=== PATIENT | female | born 2000 | race Caucasian/White ===

== ENCOUNTER 2019-03-10 18:18 | Inpatient (IN) | payer OTHER ==
[~2019-03-10 18:18] MED LIST: Bupivacaine 0.25% HCL 30 ML VIAL ONE
[2019-03-10 19:12] VITALS: BMI 29.2
[2019-03-10] MEDS ORDERED: hydrALAZINE 20 MG/ML VIAL SLOW IVP PRN ×2 (19:32→21:14)
--- NOTE | 2019-03-10 20:47 | PDOC.LDHP ---
Labor and Delivery H&P Chief complaint: decreased movement, other HPI: isolated decel in office with nl bpp, also decreased movement. 39 wk by poor criteria Current gestational age (weeks): 39 Due date: 03/14/19 Dating criteria: last menstrual period, other Grav: 1 Para: 0 Current complications: none Abnormal US findings: No Current medications: none, pre- vitamins Previous surgical history: none Allergies/Adverse Reactions: Allergies Allergy/AdvReac Type Severity Reaction Status Date / Time No Known Allergies Allergy Unverified 03/10/19 19:05 Social history: none - Physical Exam Vital signs reviewed and normal: yes General: NAD, resting, breathing through contractions Heart: RRR Lungs: nonlabored breathing Abdomen: NTTP Extremeties: no edema FHT: category 1 - Vaginal Exam cm dilated: 2 Effacement: 90% Station: -2 - OB Labs Blood type: O RH: positive Antibody Screen: negative HIV: negative RPR: negative HEPSAg: negative 1 hour GCT: negative GBS: negative Urine drug screen: negative Rubella: non-immune - Assessment L&D Assessment: medically indicated induction - Plan Plan: admit to L&D, cervical ripening
[2019-03-10] MEDS ORDERED: Butorphanol Tartrate 1 MG/ML VIAL SLOW IVP PRN (21:14)
[2019-03-10] MEDS ORDERED: HYDROcodone/Acetaminophen 5/325 mg Tablet PO PRN ×2 (21:14)
[2019-03-10] MEDS ORDERED: Ondansetron PF 4 MG/2 ML Vial IVP PRN (21:14)
[2019-03-10] MEDS ORDERED: Promethazine HCl 25 MG/ML VIAL IM PRN (21:14)
[2019-03-10] MEDS ORDERED: Ibuprofen 800 MG TAB PO PRN (21:14)
[2019-03-10] MEDS ORDERED: Lidocaine 1% (PF) 30 ML VIAL SC PRN (21:14)
[2019-03-10] MEDS ORDERED: NS w/ Oxytocin 10 units 500 ML IV SCH (21:30)
[2019-03-10] MEDS ORDERED: Lactated Ringer's 1,000 ML IV SCH (21:30)
[2019-03-10] MEDS: Misoprostol 100 MCG TAB VAG SCH (22:34)
[2019-03-10 22:57] LABS: Hemoglobin 11.3 g/dL (12.0-16.0); Mean Corpuscular HGB CONC 33.6 g/dL (32.0-36.0); Mean Corpuscular Hemoglobin 30.9 pg (25.0-35.0); Mean Corpuscular Volume 91.9 fL (78.0-98.0); Mean Platelet Volume 7.7 fL (7.4-10.4); Platelet Count 278 thou/uL (130-400); RBC Distribution Width 13.5 % (11.5-14.5); Red Blood Cell (RBC) Count 3.67 mill/uL (4.00-5.20); White Blood Cell (WBC) Count 12.2 thou/uL (4.8-10.8)
[2019-03-10 23:35] LABS: Syphilis Antibody Nonreactive (Nonreactive); Syphilis Antibody Index 0.03 S/CO (<1.00 Non-Reactive)
[2019-03-11] MEDS: Lactated Ringer's 1,000 ML IV SCH ×3 (00:29→12:38)
[2019-03-11 01:30] LABS: HBSAg Index 0.13 S/CO (0-0.99); Hep B Surf Ag Non-Reactive S/CO (NonReactive)
[2019-03-11] MEDS: Misoprostol 100 MCG TAB VAG SCH ×5 (01:33→22:50)
--- NOTE | 2019-03-11 08:07 | PDOC.LDPN ---
Labor & Delivery Progress Note - Subjective Subjective: vaginal pressure - Objective Vital signs reviewed and normal: yes General: NAD Uterine fundus: non tender Dilation: 2 Effacement: 90% Station: 0 FHT: category 1 [place] contractions every: 1min Plan: pitocin for augmentation (, SROM at 0700 clear, FHT reassuring, GBS neg)
[2019-03-11] MEDS ORDERED: Fentanyl 4 mcg/Bup 0.1% Cadd 100 ML ONE (13:30)
[2019-03-11] MEDS ORDERED: Naloxone HCl 0.4 mg/ml Vial IVP PRN ×2 (13:58)
[2019-03-11] MEDS ORDERED: diphenhydrAMINE 50 MG/ML VIAL IVP PRN (13:58)
[2019-03-11] MEDS ORDERED: Acetaminophen 325 MG TAB PO PRN (13:58)
[2019-03-11] MEDS ORDERED: ePHEDrine/0.9% NaCl/PF SYRINGE 50 mg/10 ml SLOW IVP PRN (13:58)
[2019-03-11] MEDS ORDERED: Lactated Ringer's 500 ML IV PRN (13:58)
[2019-03-11] MEDS ORDERED: Ondansetron PF 4 MG/2 ML Vial IVP PRN ×2 (13:58→18:50)
[2019-03-11] MEDS ORDERED: Promethazine HCl 25 MG/ML VIAL IM PRN ×2 (13:58→18:50)
[2019-03-11] MEDS ORDERED: Fentanyl 4 mcg/Bupivacaine 0.1% Cassette 100 ML EPIDURAL SCH (14:00)
[2019-03-11] MEDS ORDERED: Communication Order-Pharmacy FS SCH (14:00)
[2019-03-11] MEDS: NS / Oxytocin 40 units/1000ml 1,000 ML IV PRN ×2 (16:46→17:28)
[2019-03-11] MEDS ORDERED: Methylergonovine 0.2 MG/ML VIAL ONE (16:56)
[2019-03-11] MEDS: Misoprostol 200 MCG TAB ONE ×2 (17:01→17:18)
--- NOTE | 2019-03-11 17:05 | PDOC.OPDEL ---
OB Operative/Delivery Note Delivery Dr/Surgeon: Wilver Assist: n/a Pre-Delivery Diagnosis: medically indicated induction Procedure/Post Delivery Dx: spontaneous vaginal delivery Weeks gestation: 39 Anesthesia: epidural - Findings A Sex: male - 1 min: 9 - 5 min: 9 - Additional Findings/Plan Placenta delivered: spontaneous Repaired Obstetrical Laceration: periurethral (right, repaired with 3-0 vicryl) Estimated blood loss: 500cc Post delivery plan: routine recovery
[2019-03-11] MEDS ORDERED: Benzocaine-Menthol 82.5 ML CAN TOP PRN (18:50)
[2019-03-11] MEDS ORDERED: HYDROcodone/Acetaminophen 5/325 mg Tablet PO PRN ×2 (18:50)
[2019-03-11] MEDS ORDERED: Milk Of Magnesia 30 ML UDCUP PO PRN (18:50)
[2019-03-11] MEDS ORDERED: Preparation H Ointment 28 GM TUBE PR PRN (18:50)
[2019-03-11] MEDS ORDERED: Bisacodyl 10 MG SUPP PR PRN (18:50)
[2019-03-11] MEDS ORDERED: NS / Oxytocin 40 units/1000ml 1,000 ML IV SCH (18:50)
[2019-03-11] MEDS ORDERED: Lanolin Ointment 7 GM TUBE TOP PRN (18:50)
[2019-03-11] MEDS ORDERED: hydrALAZINE 20 MG/ML VIAL SLOW IVP PRN (18:50)
[2019-03-11] MEDS ORDERED: diphenhydrAMINE 25 MG CAP PO PRN (18:50)
[2019-03-11] MEDS ORDERED: Adacel (T-DAP) 0.5 ML SYRINGE IM ONE (18:50)
[2019-03-11] MEDS: Ibuprofen 800 MG TAB PO SCH (20:33)
[2019-03-11] MEDS: Docusate Calcium (SURFAK) 240 MG CAP PO SCH (20:33)
[2019-03-12] MEDS: Ibuprofen 800 MG TAB PO SCH ×2 (05:13→14:29)
[2019-03-12] MEDS: Ferrous Sulfate 325 MG TAB PO SCH ×2 (08:56→17:36)
[2019-03-12] MEDS: Docusate Calcium (SURFAK) 240 MG CAP PO SCH (08:57)
[2019-03-12] MEDS: Prenatal Vitamin 1 TAB PO SCH (08:57)
--- NOTE | 2019-03-12 14:13 | PDOC.PP ---
Post Progress Note Post Day #: 1 Subjective: Pt is doing well PPD1. She has minimal lochia. No significant pain noted at this time. She has been up and ambulatory. She is urinating with out difficulty. She is tolerating PO well. No fevers or chills. Baby is breast feeding and latching well. No symptoms or concerns at this time. PO intake tolerated: yes Flatus: yes Ambulation: yes Vital Signs (12 hours) Temp Pulse Resp BP Pulse Ox 03/12/19 12:25 98.7 F 83 20 110/57 L 03/12/19 08:08 97.6 F 99 20 114/60 99 03/12/19 05:10 97.9 F 80 16 112/68 Weight Weight 160 lb - Physical Examination General: NAD Respiratory: non-labored breathing Abdominal: + bowel sounds, no distention, appropriately TTP Extremities: negative homans (B) Skin: no rash Neurological: no gross focal deficits Psychiatric: normal affect Result Diagrams: 03/10/19 22:23 Additional Labs: Post Labs Blood Type O POSITIVE 03/10/19 23:19 Hep Bs Antigen Non-Reactive S/CO (NonReactive) 03/10/19 22:23 (1) Vaginal delivery Code(s): O80 - ENCOUNTER FOR FULL-TERM UNCOMPLICATED DELIVERY Status: Acute - Assessment/Plan PT doing well PPD 1. Baby is breast feeding well. Minimal lochia. Will plan for d/c tomorrow.
[2019-03-13] MEDS: Ibuprofen 800 MG TAB PO SCH ×3 (03:04→14:43)
[2019-03-13] MEDS: Docusate Calcium (SURFAK) 240 MG CAP PO SCH ×2 (03:04→09:31)
[2019-03-13 08:17] VITALS: BP 119/64; TEMP 98.2
[2019-03-13] MEDS: Prenatal Vitamin 1 TAB PO SCH (09:31)
[2019-03-13] MEDS: Ferrous Sulfate 325 MG TAB PO SCH (09:31)
--- NOTE | 2019-03-13 13:40 | PDOC.PP ---
Post Progress Note Post Day #: 2 PO intake tolerated: yes Flatus: yes Ambulation: yes Vital Signs (12 hours) Temp Pulse Resp BP Pulse Ox 03/13/19 08:15 98.2 F 76 20 119/64 99 03/13/19 04:00 98.5 F 89 17 114/60 Weight Weight 160 lb - Physical Examination General: NAD Respiratory: non-labored breathing Abdominal: no distention, appropriately TTP Fundus firm & at: umb-2 Extremities: negative homans (B) Neurological: no gross focal deficits Psychiatric: normal affect Result Diagrams: 03/10/19 22:23 Additional Labs: Post Labs Blood Type O POSITIVE 03/10/19 23:19 Hep Bs Antigen Non-Reactive S/CO (NonReactive) 03/10/19 22:23 - Assessment/Plan PPD2 s/p TSVD VSSAF lochia appropriate, pain controlled. Rh pos RImm DC home FU 6w
== END 2019-03-13 15:00 | disposition home or self-care (01) | DRG 807 ==
LOC: L&D/OP 18:18 → L&D 22:16 → 3SW 03-11 19:50
PROVIDERS: ADMIT Student in an Organized Health Care Education/Training Program; ATTEND Student in an Organized Health Care Education/Training Program
PROC: 10E0XZZ Delivery of Products of Conception, External Approach (ICD-10-PCS; principal; 2019-03-11)
PROC: 0HQ9XZZ Repair Perineum Skin, External Approach (ICD-10-PCS; 2019-03-11)
PROC: 3E0P7VZ Introduction of Hormone into Female Reproductive, Via Natural or Artificial Opening (ICD-10-PCS; 2019-03-11)
DX: O76 Abnormality in fetal heart rate and rhythm complicating labor and delivery (principal); Z37.0 Single live birth; Z3A.39 39 weeks gestation of pregnancy; Z67.91 Unspecified blood type, Rh negative; O71.82 Other specified trauma to perineum and vulva
CPT/HCPCS: 36415; 51702; 85027; 86780; 86850; 86900; 86901; 87340; 90715; 99285; J2001; J2210; J2590; S0020